=== PATIENT | male | born 1945 | race Caucasian/White ===

== ENCOUNTER → 2016-07-31 | Outpatient (CLI) | payer MEDICARE, BC ==
[~2016-07-31] MED LIST: ALTACE 5MG5 MG PO; ALTACE5 MG PO; AMARYL 2MG T2 MG/TAB PO; ASPIRIN E.C. 8181 MG PO; ATORVASTATIN; CORICIDIN HBP PO; GLUCOPHAGE; JANUMET 500 MG-1 TA1 PO; LIPITOR 10MG10 MG PO; PERCOCET 325 MG1 TA2 PO
== END ==
LOC: SUN.DIA 10:18
DX: E11.65 Type 2 diabetes mellitus with hyperglycemia (principal); Z68.34 Body mass index [BMI] 34.0-34.9, adult; E78.5 Hyperlipidemia, unspecified; I10 Essential (primary) hypertension; Z71.3 Dietary counseling and surveillance

== ENCOUNTER → 2016-10-23 | Outpatient (CLI) | payer MEDICARE, BC | LOC: SUN.DIA 11:45 | DX: E11.65 Type 2 diabetes mellitus with hyperglycemia (principal); Z68.34 Body mass index [BMI] 34.0-34.9, adult; Z71.3 Dietary counseling and surveillance; E78.5 Hyperlipidemia, unspecified; I10 Essential (primary) hypertension ==

== ENCOUNTER → 2017-01-23 | Outpatient (CLI) | payer MEDICARE, BC | LOC: SUN.DIA 11:58 | DX: E11.9 Type 2 diabetes mellitus without complications (principal); E78.5 Hyperlipidemia, unspecified; I10 Essential (primary) hypertension; Z71.3 Dietary counseling and surveillance | CPT/HCPCS: G0108 ==

== ENCOUNTER → 2017-05-27 | Outpatient (CLI) | payer MEDICARE, BC | LOC: SUN.DIA 08:37 | DX: E11.9 Type 2 diabetes mellitus without complications (principal); E78.5 Hyperlipidemia, unspecified; I10 Essential (primary) hypertension; Z68.32 Body mass index [BMI] 32.0-32.9, adult; Z71.3 Dietary counseling and surveillance | CPT/HCPCS: G0108 ==

== ENCOUNTER → 2017-06-11 | Outpatient (CLI) | payer MEDICARE, BC | LOC: SUN.DIA 09:42 | DX: E11.9 Type 2 diabetes mellitus without complications (principal); E78.5 Hyperlipidemia, unspecified; I10 Essential (primary) hypertension; Z71.3 Dietary counseling and surveillance | CPT/HCPCS: G0108 ==

== ENCOUNTER → 2017-07-01 | Outpatient (CLI) | payer MEDICARE, BC | LOC: SUN.DIA 09:09 | DX: E11.9 Type 2 diabetes mellitus without complications (principal); E78.5 Hyperlipidemia, unspecified; I10 Essential (primary) hypertension; Z68.32 Body mass index [BMI] 32.0-32.9, adult; Z71.3 Dietary counseling and surveillance | CPT/HCPCS: G0108 ==

== ENCOUNTER → 2017-09-09 | Outpatient (CLI) | payer MEDICARE, BC | LOC: SUN.DIA 08-27 09:45 | DX: E11.9 Type 2 diabetes mellitus without complications (principal); E78.5 Hyperlipidemia, unspecified; I10 Essential (primary) hypertension; Z68.34 Body mass index [BMI] 34.0-34.9, adult; Z71.3 Dietary counseling and surveillance | CPT/HCPCS: G0108 ==

== ENCOUNTER → 2017-10-14 | Outpatient (CLI) | payer MEDICARE, BC | LOC: SUN.DIA 09:26 | DX: E11.9 Type 2 diabetes mellitus without complications (principal); E78.5 Hyperlipidemia, unspecified; I10 Essential (primary) hypertension; Z68.34 Body mass index [BMI] 34.0-34.9, adult; Z71.3 Dietary counseling and surveillance | CPT/HCPCS: G0108 ==

== ENCOUNTER → 2017-12-30 | Outpatient (CLI) | payer MEDICARE, BC | LOC: SUN.DIA 09:54 | DX: E11.9 Type 2 diabetes mellitus without complications (principal); E78.5 Hyperlipidemia, unspecified; I10 Essential (primary) hypertension; Z68.34 Body mass index [BMI] 34.0-34.9, adult; Z71.3 Dietary counseling and surveillance | CPT/HCPCS: G0108 ==

== ENCOUNTER → 2018-03-31 | Outpatient (CLI) | payer MEDICARE, BC | LOC: SUN.DIA 02-24 15:14 | DX: E11.9 Type 2 diabetes mellitus without complications (principal); E78.5 Hyperlipidemia, unspecified; I10 Essential (primary) hypertension | CPT/HCPCS: G0108 ==

== ENCOUNTER → 2018-04-28 | Outpatient (CLI) | payer MEDICARE, BC | LOC: SUN.DIA 10:07 | DX: E11.9 Type 2 diabetes mellitus without complications (principal); E78.5 Hyperlipidemia, unspecified; I10 Essential (primary) hypertension | CPT/HCPCS: G0108 ==

== ENCOUNTER → 2018-05-29 | Outpatient (CLI) | payer MEDICARE, BC | LOC: SUN.DIA 10:44 | DX: E11.9 Type 2 diabetes mellitus without complications (principal); E78.5 Hyperlipidemia, unspecified; I10 Essential (primary) hypertension | CPT/HCPCS: G0108 ==

== ENCOUNTER → 2018-08-25 | Outpatient (CLI) | payer MEDICARE, BC | LOC: SUN.DIA 07-17 10:48 | DX: E11.9 Type 2 diabetes mellitus without complications (principal); E78.5 Hyperlipidemia, unspecified; I10 Essential (primary) hypertension ==

== ENCOUNTER → 2018-10-07 | Outpatient (CLI) | payer MEDICARE, BC | LOC: SUN.DIA 10:52 | DX: E11.9 Type 2 diabetes mellitus without complications (principal); E78.5 Hyperlipidemia, unspecified; I10 Essential (primary) hypertension | CPT/HCPCS: G0108 ==

== ENCOUNTER → 2018-10-30 | Outpatient (CLI) | payer MEDICARE, BC | LOC: SUN.DIA 11:33 | DX: E11.9 Type 2 diabetes mellitus without complications (principal); E78.5 Hyperlipidemia, unspecified; I10 Essential (primary) hypertension | CPT/HCPCS: G0108 ==

== ENCOUNTER → 2018-11-18 | Outpatient (CLI) | payer MEDICARE, BC | LOC: SUN.DIA 10:08 | DX: E11.9 Type 2 diabetes mellitus without complications (principal); E78.5 Hyperlipidemia, unspecified; I10 Essential (primary) hypertension | CPT/HCPCS: G0108 ==

== ENCOUNTER → 2019-02-02 | Outpatient (CLI) | payer MEDICARE, BC | LOC: DIA.ED 10:59 | DX: E11.9 Type 2 diabetes mellitus without complications (principal); E78.5 Hyperlipidemia, unspecified; I10 Essential (primary) hypertension; E66.9 Obesity, unspecified | CPT/HCPCS: G0108 ==

== ENCOUNTER → 2019-09-15 | Outpatient (CLI) | payer MEDICARE, BC | LOC: COL.VAS 09:32 | DX: I49.9 Cardiac arrhythmia, unspecified (principal); R94.31 Abnormal electrocardiogram [ECG] [EKG]; I34.0 Nonrheumatic mitral (valve) insufficiency ==